=== PATIENT | male | born 1990 | race Caucasian/White ===

== ENCOUNTER 2016-06-22 07:09 | Emergency (ER) | payer BC ==
[2016-06-22] MEDS ORDERED: BENZONATATE 100 MG CAPSULE PO ONE (07:17)
[2016-06-22] MEDS ORDERED: AZITHROMYCIN 500 MG TABLET PO ONE (07:17)
--- NOTE | 2016-06-22 07:22 | Emergency Department Record ---
History of Present Illness - General Chief Complaint: Cough Stated Complaint: I WANT TO KNOW IF I HAVE A COMMON COLD Time Seen by Provider: 06/22/16 07:16 Source: Patient Mode of Arrival: Ambulatory Limitations: No limitations - History of Present Illness Initial Comments: 25 yo male presents a cough for two days. He reports a small amount of sputum. No fevers. He denies any history of underlying lung disease. He did vomit once after coughing spell. He is not nauseated. He is not a smoker. He is not on any medications. MD Complaint: Cough Onset/Timin -: Days(s) Consistency: Constant Improves With: OTC cold medicine Worsens With: Nothing Context: Sick contacts Associated Symptoms: Cough Treatments Prior to Arrival: None - Related Data Previous Rx's Medication Instructions Recorded Azithromycin [Zithromax] 250 mg PO DAILY #4 tablet 06/22/16 Benzonatate [Tessalon] 1 cap PO Q8H PRN #21 cap 06/22/16 Allergies Allergy/AdvReac Type Severity Reaction Status Date / Time No Known Drug Allergies Allergy Verified 07/24/14 08:09 Travel Screening - Travel/Exposure Within Last 30 Days Have you traveled within the last 30 days?: No Review of Systems Constitutional: Denies: Chills, Fever, Malaise, Weakness Eyes: Denies: Eye discharge, Eye pain ENT: Reports: Congestion, Throat pain Cardiovascular: Denies: Chest pain, Palpitations, Syncope Endocrine: Denies: Fatigue Gastrointestinal: Reports: Vomiting. Denies: Abdominal pain, Diarrhea, Nausea Genitourinary: Denies: Dysuria, Frequency, Hematuria Musculoskeletal: Denies: Arthralgia, Joint swelling, Myalgia Skin: Denies: Bruising, Change in color, Rash Neurological: Denies: Headache, Weakness Psychiatric: Denies: Anxiety Hematological/Lymphatic: Denies: Blood Clots, Easy bleeding, Easy bruising, Swollen glands Past Medical History - SOCIAL HISTORY Smoking Status: Never smoker Alcohol Use: None Drug Use: None - RESPIRATORY Hx Respiratory Disorders: No - CARDIOVASCULAR Hx Cardio Disorders: No - NEURO Hx Neuro Disorders: No - GI Hx GI Disorders: No - Hx Genitourinary Disorders: No - ENDOCRINE Hx Endocrine Disorders: No - MUSCULOSKELETAL Hx Musculoskeletal Disorders: No - PSYCH Hx Psych Problems: No - HEMATOLOGY/ONCOLOGY Hx Hematology/Oncology Disorders: No Family Medical History Any Significant Family History?: No Physical Exam - General General Appearance: Alert, Oriented x3, Cooperative, No acute distress Limitations: No limitations - Head Head exam: Normal inspection - Eye Eye exam: Normal appearance, PERRL Pupils: Normal accommodation. negative: Irregular, Unequal - ENT ENT exam: Normal exam Ear exam: Normal external inspection Nasal Exam: Normal inspection Mouth exam: Normal external inspection Teeth exam: Normal inspection Throat exam: Normal inspection - Neck Neck exam: Normal inspection, Full ROM. negative: Tenderness - Respiratory Respiratory exam: Normal lung sounds bilaterally. negative: Accessory muscle use, Decreased breath sounds, Prolonged expiratory, Respiratory distress, Rhonchi, Stridor, Wheezes - Cardiovascular Cardiovascular Exam: Regular rate, Normal rhythm, Normal heart sounds - GI/Abdominal GI/Abdominal exam: Soft - Rectal Rectal exam: Deferred - exam: Deferred - Extremities Extremities exam: Normal inspection, Full ROM, Normal capillary refill. negative: Pedal edema, Tenderness - Back Back exam: Reports: Normal inspection, Full ROM. Denies: Muscle spasm, Rash noted, Tenderness - Neurological Neurological exam: Alert, Normal gait, Oriented X3 - Psychiatric Psychiatric exam: Normal affect, Normal mood - Skin Skin exam: Dry, Intact, Normal color, Warm Course Vital Signs 06/22/16 07:12 Temperature 98.7 F Pulse Rate 89 Respiratory 20 Rate Blood Pressure 129/84 Pulse Ox 98 - Reevaluation(s) Reevaluation #1: 06/22/16 07:25 The vitals were reviewed An influenza swab was sent Reevaluation #2: Influenza is negative The patient works at [employer] and is in proximity of the elderly residents He will be off work today Zithromax provided given the productive sputum 06/22/16 07:50 Disposition Disposition: Discharge Clinical Impression: Bronchitis Disposition: Home, Self-Care Condition: (1) Good Instructions: Acute Bronchitis (ED) Additional Instructions: Rest and stay well hydrated Call for a new family doctor for follow up Return if fever, short of breath or any other concerns Prescriptions: Azithromycin [Zithromax] 250 mg PO DAILY #4 tablet Benzonatate [Tessalon] 1 cap PO Q8H PRN #21 cap PRN Reason: Cough Forms: Patient Portal Access Time of Disposition: 07:36
[2016-06-22 07:46] LABS: INFLUENZA A NEGATIVE (NEGATIVE); INFLUENZA B NEGATIVE (NEGATIVE)
== END 2016-06-22 08:05 | disposition home or self-care (01) ==
LOC: ER 07:09
DX: J20.9 Acute bronchitis, unspecified (principal)
CPT/HCPCS: 87400; 99282